=== PATIENT | female | born 1955 ===

== ENCOUNTER 2020-01-16 13:04 | Outpatient (CLI) | payer MEDICARE, BC, SELFPAY ==
[2020-01-18 22:44] LABS: SARS-CoV-2 RNA Undetected (Undetected); SARS-CoV-2 Specimen Source Nasopharynx
== END 2020-01-16 13:24 ==
PROVIDERS: PCP Physician Assistant; Visit Provider Family Medicine
DX: Z03.818 Encounter for observation for suspected exposure to other biological agents ruled out (principal)
CPT/HCPCS: U0003